=== PATIENT | female | born 1940 | race Two or more races ===

== ENCOUNTER 2022-05-11 23:52 | Inpatient (IN) | payer OTHER ==
[~2022-05-11] VITALS: Ht 160 cm; Wt 58.1 kg
--- NOTE | 2022-05-12 00:15 | NUR ---
PACIENTE FEMINA DE 82 ANOS ALERTA Y ORIENTADO X 3 ACOMPANADA POR FAMILIAR REFIERE DOLOR ABDOMINO PELVICO DESDE HOY
--- NOTE | 2022-05-12 00:55 | NUR ---
SE REALIZA ADMINISTRACION DE MEDICAMENTOS A PACIENTE Y TERAPIA INTRAVENOSA. PACIENTE SE ORIENTA SOBRE USO Y EFECTOS DE LOS MEDICAMENTOS A SER ADMINISTRDOS. PACIENTE EN ESPERA DE REALIZAR CT PO SE ENTREGA CONTRASTE.
--- NOTE | 2022-05-12 08:05 | NUR ---
SE RECIBE PTE EN EL AREA DE OBSERVACION EN LOR CON BARANDAS ELEVADA Y TIMBRE ACCESIBLE, NO PRESENTA DOLOR AL MOMENTO SE OBSERVA VENOPUNCION PATENTE Y SULEMAN DE EDEMA PTE EN ESEPRA DE DR MILLER.
[2022-05-12] MEDS ORDERED: COZAAR100 MG PO (09:53)
[2022-05-12] MEDS ORDERED: CRESTOR10 MG PO (09:54)
[2022-05-12] MEDS ORDERED: NORVASC10 MG PO (09:54)
--- NOTE | 2022-05-12 10:41 | NUR ---
SE PREPARA PTE PARA ALEXANDRU DE OPERACIONES SE REALIZA EKG Y PRUEBA DE COVID
[2022-05-13] MEDS ORDERED: AMOX1TAB5 PO (13:53)
[2022-05-13] MEDS ORDERED: PERCOCET 5-3251 EACH PO (14:00)
== END 2022-05-13 23:04 | disposition home or self-care (01) | DRG 343 ==
LOC: ER 23:52 → SURH 05-12 08:56 → O/R 05-12 08:56 → SURH 05-12 13:16
PROVIDERS: ADMIT Surgery; ATTEND Surgery
PROC: BW21ZZZ Computerized Tomography (CT Scan) of Abdomen and Pelvis (ICD-10-PCS; 2022-05-12)
PROC: 0DTJ4ZZ Resection of Appendix, Percutaneous Endoscopic Approach (ICD-10-PCS; principal; 2022-05-12 10:00)
DX: K35.891 Other acute appendicitis without perforation, with gangrene (principal); I10 Essential (primary) hypertension; Z20.822 Contact with and (suspected) exposure to COVID-19